=== PATIENT | male | born 1980 | race Caucasian/White ===

== ENCOUNTER → 2020-07-20 | Outpatient (CLI) | payer OTHER ==
--- NOTE | 2020-07-20 12:50 | KCIC ---
MR CERVICAL SPINE WO DATE: 07/20/2020 9:15 AM INDICATION: NECK PAIN/REPORTED ANATOMICAL FUSION. Chronic neck pain and limited mobility. TECHNIQUE: Multiplanar multisequence magnetic resonance imaging of the cervical spine was performed w ithout administration of intravenous contrast using the standard cervical spine protocol. COMPARISON: None. 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 Partial fusion of C2 and C3 along the posterior aspect of the disc space. Partial fusion of C7-T 1 along the left aspect of the disc space and involving the facet joints. Left convex cervical curvature. Exaggerated cervical lordosis. No acute fracture. Mild multilevel degenerative disc desiccation and disc height loss. Bone marrow s ignal intensity is normal. The spinal cord is normal in signal intensity. On the limited views of the cranial cavity and brain, the cerebellum and jimenez have normal morphology and signal characteristics. No Chiari malformation. No soft tissue abnormality. Normal signal voids are present in the vertebral arteries. C2-3: Osseous fusion across the facet joints. Mild neural foraminal narrowing. No spinal canal stenos is. C3-4: Disc osteophyte complex. Uncovertebral hypertrophy. Moderate right and mild left facet arthropa thy. Ligamental flavum thickening Mild to moderate neuroforaminal narrowing. Mild spinal canal stenos is. C4-5: Moderate right and mild left neural foraminal narrowing. No spinal canal stenosis. C5-6: Mild bilateral neural foraminal narrowing. No spinal canal stenosis. C6-7: Disc osteophyte complex. Uncovertebral hypertrophy. Severe right and moderate left facet arthro nelson. Ligamentum flavum thickening. Moderate bilateral neural foraminal narrowing. Mild spinal canal stenosis. C7-T1: Osseous fusion across the left facet joint. Moderate right facet arthropathy. No spinal canal stenosis. Mild left neural foraminal narrowing. 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 No severe spin al canal stenosis.. Electronically signed by: Matt Singh MD (07/20/2020 12:47 PM) [id number]
== END ==
LOC: KCIC MRI 08:47
PROVIDERS: ATTEND Family Medicine
DX: M47.813 Spondylosis without myelopathy or radiculopathy, cervicothoracic region (principal); M48.03 Spinal stenosis, cervicothoracic region; Q76.49 Other congenital malformations of spine, not associated with scoliosis; M41.82 Other forms of scoliosis, cervical region
CPT/HCPCS: 72141